=== PATIENT | female | born 1950 | race Caucasian/White ===

== ENCOUNTER → 2017-10-12 | Outpatient (CLI) | payer OTHER | END | disposition home or self-care (01) | LOC: C.PATHSPEC 14:57 | PROVIDERS: ATTEND Urology | DX: R30.0 Dysuria (principal) ==

== ENCOUNTER 2022-08-25 09:34 | Inpatient (IN) ==
--- NOTE | 2022-08-14 09:45 | PAT Medication Instructions ---
Medication Instructions Date of Service August 14, 2022 Home Medications Chloraphil Complex 1,500 mg PO TID Lactobacillus rhamnosus GG 10 billion cell capsule (Culturelle) 1 cap PO QPM Min-Gonzalez 300 mcg PO TID Vitamin D3 40 mcg PO QAM ascorbic acid (vitamin C) 300 mg chewable tablet 300 mg PO TID buspirone 7.5 mg tablet 7.5 mg PO QAM calcium lactate 300 mg PO TID clobetasol 0.05 % topical cream 1 applic topical Q3D cranberry 500 mg capsule 500 mg PO QAM fexofenadine 180 mg tablet 180 mg PO QAM omeprazole 40 mg capsule,delayed release 40 mg PO QAM simethicone 125 mg capsule (Gas-X Extra Strength) 125 mg PO BID PRN zinc 10 mg tablet 10 mg PO QAM STOP taking 2 weeks before surgery (or as soon as possible if surgery is within 2 weeks) Chloraphil Complex 1,500 mg PO TID Min-Gonzalez 300 mcg PO TID cranberry 500 mg capsule 500 mg PO QAM STOP taking 24 hours before surgery clobetasol 0.05 % topical cream 1 applic topical Q3D DO NOT take the morning of surgery Vitamin D3 40 mcg PO QAM ascorbic acid (vitamin C) 300 mg chewable tablet 300 mg PO TID calcium lactate 300 mg PO TID fexofenadine 180 mg tablet 180 mg PO QAM simethicone 125 mg capsule (Gas-X Extra Strength) 125 mg PO BID PRN zinc 10 mg tablet 10 mg PO QAM Take morning of surgery With a small sip of water, OTHERWISE NOTHING TO EAT OR DRINK AFTER MIDNIGHT: buspirone 7.5 mg tablet 7.5 mg PO QAM omeprazole 40 mg capsule,delayed release 40 mg PO QAM Take evening before surgery Lactobacillus rhamnosus GG 10 billion cell capsule (Culturelle) 1 cap PO QPM ascorbic acid (vitamin C) 300 mg chewable tablet 300 mg PO TID simethicone 125 mg capsule (Gas-X Extra Strength) 125 mg PO BID PRN(if needed) Other Notes If you have any questions please call us at [phone] or [phone] or [phone] or [phone]
--- NOTE | 2022-08-15 14:57 | Anesthesiology Consultation ---
Date of Service August 15, 2022 Assessment & Plan (1) Encounter for pre-operative examination: COVID screening: Per assessment on 08/15: No known COVID-19 positive contacts or current COVID-19 related symptoms. Travel screen negative. At surgeon discretion if preop Covid testing being done. Chart Review Chart Review: Acceptable Risk for Surgery and Patient seen in Pre Admission Testing Teaching & Discussion Pre-Anesthesia Teaching/Discussion Notes: Instructed NPO after midnight before surgery,except medications with 15 cc of water. Medication instructions provided according to the PAT guidelines. History Surgery Operation Date: 08/25/22 14:05 Proposed Procedures p Total Abdominal Hysterectomy, Bilateral Salpingo-oophorectomy - Douglas Israel MD Height/Weight Height: 5 ft 2 in Weight: 62.4 kg Allergies Allergy/AdvReac Type Severity Reaction Status Date / Time iodine Allergy Intermediate ITCHING Verified 08/14/22 10:22 Bactrim Allergy Unknown ITCHING Verified 12/13/17 10:14 nitrofurantoin Allergy Unknown ITCHING Verified 08/14/22 07:30 shellfish derived Allergy Unknown ITCHING Verified 08/14/22 07:30 sulfamethoxazole [Bactrim] Allergy Unknown ITCHING Verified 08/14/22 07:30 trimethoprim [Bactrim] Allergy Unknown ITCHING Verified 08/14/22 07:30 ciprofloxacin Allergy ITCHING Verified 08/14/22 10:22 Unclassified Drugs Allergy Unknown HAIR DYE - Uncoded 08/14/22 07:30 ITCHY Medications Home Medications Medication Instructions Recorded Confirmed Last Taken Chloraphil Complex 1,500 mg PO TID 08/14/22 08/14/22 Unknown Lactobacillus rhamnosus GG 10 1 cap PO QPM 08/14/22 08/14/22 Unknown billion cell capsule (Culturelle) Min-Gonzalez 300 mcg PO TID 08/14/22 08/14/22 Unknown Vitamin D3 40 mcg PO QAM 08/14/22 08/14/22 Unknown ascorbic acid (vitamin C) 300 mg 300 mg PO TID 08/14/22 08/14/22 Unknown chewable tablet buspirone 7.5 mg tablet 7.5 mg PO QAM 08/14/22 08/14/22 Unknown calcium lactate 300 mg PO TID 08/14/22 08/14/22 Unknown clobetasol 0.05 % topical cream 1 applic topical Q3D 08/14/22 08/14/22 Unknown cranberry 500 mg capsule 500 mg PO QAM 08/14/22 08/14/22 Unknown fexofenadine 180 mg tablet 180 mg PO QAM 08/14/22 08/14/22 Unknown omeprazole 40 mg capsule,delayed 40 mg PO QAM 08/14/22 08/14/22 Unknown release simethicone 125 mg capsule (Gas-X 125 mg PO BID PRN following meals 08/14/22 08/14/22 Unknown Extra Strength) zinc 10 mg tablet 10 mg PO QAM 08/14/22 08/14/22 Unknown Past Medical History Medical History (Updated 08/16/22 @ 08:37 by Tosha Redman) Anxiety Chronic anemia GERD (gastroesophageal reflux disease) History of COVID-19 05/2021- upset stomach, cough, congestion > resolved Thalassemia minor No recent/current issues Exercise / Class Metabolic Activity II 4-5 Yardwork/Stairs/Walk up hill Past Surgical History Surgical History History of bladder surgery cysto, bladder biopsy (12/13/17): MAC at [facility] History of dilatation and curettage History of esophagogastroduodenoscopy (EGD) Hx of arthroscopy of left knee Hx of colonoscopy Past Anesthesia History No Hx of Anesthesia Complications and No Family Hx of Anesthesia Complications History of PONV No Hx of PONV and Hx of Motion Sickness Social History Smoking Status: Former smoker tobacco type: cigarettes Do You Dip or Chew Tobacco: No Smoking End Date: Quit 35 years ago Hx Alcohol Use: Yes alcohol intake frequency: holidays/special occasions only Hx Substance Use: No substance use type: does not use Review of Systems Patient denies chest pain, shortness of breath, dyspnea on exertion, fever, chills, cough, wheezing, palpitations. Physical Exam Vital Signs VITALS BP 122/80 P 80 TEMP 98.3 SP02 97%RA RESP 16 PHYSICAL Full cervical extension range of motion. Full TMJ range of motion. TMD 3 finger breaths Mallampati Score 1 Dentition: upper partial Lungs: clear throughout to auscultation Cardiac: regular rate and rhythm, no murmurs noted Spine: normal Carotid arteries: negative bruit Extremities: no edema Lab Results Anesthesia Preop Results Results Anesthesia Widget: WBC 6.99 K/ul (4.8-10.8) 08/15/22 Hgb 10.1 g/dl (12.0-16.0) L 08/15/22 Hct 31.3 % (37.0-47.0) L 08/15/22 Plt 469 K/uL (130-400) H 08/15/22 Na 136 mmol/L (136-145) 08/15/22 K 4.1 mmol/L (3.5-5.1) 08/15/22 Cl 102 mmol/L (98-107) 08/15/22 CO2 27 mmol/L (21-32) 08/15/22 BUN 13 mg/dl (6-23) 08/15/22 Creat 0.98 mg/dl (0.6-1.2) 08/15/22 Glucose Level 92 mg/dl (70-99(Fasting)) 08/15/22 PT 11.3 Seconds (9.0-12.0) 08/15/22 PTT 28.4 Seconds (21.0-31.0) 08/15/22 INR 1.1 (0.9-1.1) 08/15/22 Blood Type A Positive 08/15/22 Antibody Screen NEGATIVE 08/15/22 Testing Electrocardiogram Date: 08/15/22 Findings: + NSR @ (77) COVID-19 Risk Screen Screening Information COVID-19 Screen Date: 08/15/22 Exposure 21 Days Family/Household +COVID Last 21 Days: No Exposure 10 Days Any COVID Exposure Last 10 Days: No Symptoms Last 10 Days Experienced COVID Sx Last 10 Days: No + COVID 0-90 Days COVID + in Last 0-90 Days: No
[~2022-08-25 09:34] MED LIST: BUPIVACAINE 0.25% PF 30 ML VIAL ONE; LR 15ML/HR IV SCH; cefOXitin 2,000 MG in DEXTROSE 5% 50 ML IV SCH
[2022-08-25] MEDS ORDERED: ONDANSETRON INJ 2 MG/ML 2 ML VIAL IV PRN ×2 (10:35→13:42)
[2022-08-25] MEDS ORDERED: ePHEDrine sulfate 50 MG/ML AMP IV PRN ×2 (10:35→13:41)
[2022-08-25] MEDS ORDERED: ATROPINE SULFATE 0.1 MG/ML 10ML SYR IV PRN (10:35)
[2022-08-25] MEDS ORDERED: LIDOCAINE 2% MPF LOCAL 5 ML VIAL ONE (11:01)
[2022-08-25] MEDS ORDERED: ROCURONIUM BROMIDE 10 MG/ML 5 ML VIAL IV ONE ×2 (11:01→14:12)
[2022-08-25] MEDS ORDERED: ONDANSETRON INJ 2 MG/ML 2 ML VIAL ONE (11:01)
[2022-08-25] MEDS ORDERED: DEXAMETHASONE SOD INJ 4 MG/ML VIAL ONE (11:01)
[2022-08-25] MEDS ORDERED: PROPOFOL IV EMULSION 10 MG/ML 20 ML VIAL IV ONE (11:01)
[2022-08-25] MEDS ORDERED: KETOROLAC 30 MG/ML VIAL ONE (11:03)
[2022-08-25] MEDS ORDERED: ACETAMINOPHEN 1000 MG/100 ML IV IV ONE (11:40)
[2022-08-25] MEDS ORDERED: FAMOTIDINE/PF 20 MG/2 ML VIAL IV ONE (11:40)
[2022-08-25] MEDS ORDERED: MIDAZOLAM HCL 1 MG/ML 2ML VIAL ONE (11:42)
[2022-08-25] MEDS ORDERED: fentaNYL citrate PF 100 MCG/2 ML VIAL ONE ×2 (11:42→13:56)
--- NOTE | 2022-08-25 11:50 | History & Physical Bridge Note ---
Date of Service August 25, 2022 History & Physical Bridge Note I have examined the patient, reviewed the History & Physical and in the interval since the performance of the History & Physical I have noted the following changes of clinical significance: no changes noted
[2022-08-25] MEDS ORDERED: MoRPHine SULFATE PF 1 MG/ML 10 ML AMP/VIAL ONE (12:04)
[2022-08-25] MEDS ORDERED: NALBUPHINE HCL INJ 10 MG/ML AMP IV PRN (13:41)
[2022-08-25] MEDS ORDERED: HYDROmorphone INJ 0.5 MG/0.5 ML SYR IV PRN (13:41)
[2022-08-25] MEDS ORDERED: NALOXONE HCL 0.08 MG in SYRINGE 1.8 ML IV PRN (13:41)
[2022-08-25] MEDS ORDERED: MoRPHine SULFATE 2 MG/ML CARP IV PRN (13:41)
[2022-08-25] MEDS ORDERED: LACTATED RINGER'S 500 ML IV PRN (13:41)
[2022-08-25] MEDS ORDERED: NALOXONE HCL 1 MG in SODIUM CHLORIDE 0.9% 1000ML 1,000 ML IV PRN (13:41)
[2022-08-25] MEDS ORDERED: diphenhydrAMINE 50 MG/ML VIAL IV PRN (13:41)
[2022-08-25] MEDS ORDERED: MoRPHine SULFATE PF 1 MG/ML 10 ML AMP/VIAL INT SPINAL ONE (13:41)
[2022-08-25] MEDS ORDERED: NALOXONE HCL 0.4 MG/1 ML VIAL/CARP IV PRN (13:41)
[2022-08-25] MEDS ORDERED: PROMETHAZINE HCL 6.25 MG in SODIUM CHLORIDE 0.9% 50 ML IV PRN (13:42)
[2022-08-25] MEDS ORDERED: SODIUM CHLORIDE 0.9% 1000ML 1,000 ML IV SCH (13:45)
[2022-08-25] MEDS ORDERED: NO NARCOTICS OR SEDATIVES SCH (13:45)
[2022-08-25] MEDS ORDERED: DC INTRASPINAL MORPHINE SCH (13:45)
[2022-08-25] MEDS ORDERED: NEOSTIGMINE METHYLSULFATE 1 MG/ML 10ML VIAL ONE (14:29)
[2022-08-25] MEDS ORDERED: GLYCOPYRROLATE 0.2 MG/ML VIAL ONE ×2 (14:29)
--- NOTE | 2022-08-25 14:38 | Post Operative Brief Note ---
Immediate Post Op Note v1 Date of Surgery August 25, 2022 Pre & Post Diagnosis Operation Date: 08/25/22 11:30 Pre-Op Diagnosis: Post Menopausal Bleeding, Fibroid Uterus Post-Op Diagnosis: Post Menopausal Bleeding, Fibroid Uterus I identified the patient and participated in the time-out.: Yes Procedure Operation Date: 08/25/22 11:30 Actual Procedures p Total Abdominal Hysterectomy, Bilateral Salpingo-oophorectomy(Not Applicable) - Douglas Israel MD Surgeon Douglas Israel MD Front Desk Admin nurse medical assistant secretary Estimated Blood Loss 100 Findings Consistent with Post-Op Diagnosis adhesions Drains [place] Drain Anesthesia Type General Regional Complications none
--- NOTE | 2022-08-25 15:08 | Anesthesiology Progress Note ---
Date of Service August 25, 2022 Anesthesia Post Procedure Vital Signs Vital Signs: Temp Pulse Pulse Resp BP Pulse Ox O2 Del Method 08/25/22 14:50 97.3 F L 61 14 145/72 H 100 Oxymask 08/25/22 09:56 98.6 F 92 H 16 169/83 H 98 Room Air O2 Flow Rate 08/25/22 14:50 7 08/25/22 09:56 Pain Intensity Lower Abdomen: Pain Intensity: 4 Transfer of Care Handoff Completed per policy Notes Mental Status: alert / awake / arousable and participated in evaluation Patient Amnestic to Procedure: Yes Nausea / Vomiting: adequately controlled Pain: adequately controlled Airway Patency, RR, SpO2: stable & adequate BP & HR: stable & adequate Hydration State: stable & adequate Anesthetic Complications: no major complications apparent and Pt Satisfied with anesthetic care
[2022-08-25] MEDS: fentaNYL citrate PF 100 MCG/2 ML VIAL IV PRN ×2 (15:16→15:22)
--- NOTE | 2022-08-25 15:48 | Operative Report (OR) ---
PROCEDURE PERFORMED: Total abdominal hysterectomy and bilateral salpingo- oophorectomy. INDICATIONS FOR SURGERY: Postmenopausal bleeding, fibroid uterus, failed D and C. PREOPERATIVE DIAGNOSES: Postmenopausal bleeding, failed D and C, fibroid uterus. SURGEON: Frank Israel MD. BUTTON MAKER: Nursing assist. ESTIMATED BLOOD LOSS: 100 mL ANESTHESIA: General with spinal narcotics. OPERATIVE FINDINGS AND PROCEDURE: The patient was brought to the OR table, correctly identified by armband and conversation. Spinal narcotics were administered. General anesthesia was administered. Perineum and vagina were painted with Betadine paint, draped in usual sterile fashion. Reyes catheter was inserted aseptically in the bladder, connected to gravity drainage. Lower abdomen was painted with an alcohol based sterilizing solution and draped in the usual sterile fashion. Pfannenstiel incision was made and carried down to the anterior fascia by sharp dissection. Hemostasis was secured by electrocauterization. Fascia was then incised laterally exposing the recti muscles. Fascia was dissected off the recti muscles, exposing the midline. Midline between the two rectus muscle was entered and the peritoneum was entered carefully. After entering the peritoneum, the incision was carried down to the pelvic brim and up towards the umbilicus, an O'Rodrigo[place] self-retraining retractor was inserted into the abdomen and four laparotomy packs were used to retract the intestines and provide adequate exposure of the pelvic cavity. The fundus was grasped with a double tooth tenaculum. The round ligaments were suture ligated and intact. They were then ligated distally with a silk tie. The round ligaments were clamped close to the uterus with a Melissa cut and then incision was made above the vesicouterine fold, the bladder was advanced out of the operative field. The adnexa removed by entering retroperitoneally on both the right and left side. Then, identifying the infundibulopelvic ligament, doubly ligated with a silk suture and then cutting the adnexa away from the lateral pelvic wall. The uterine vessels were skeletonized, clamped with a curved Anya, cut with a stump and then ligated with a transfixion suture twice. Following this, the stumps were cauterized. The bladder was advanced out of the operative field. Curved Anya was used to slide off the cervix, thus clamping the cardinal ligaments, cutting in with the stump and ligated them with a chromic gut suture. This was done in 4 steps on the left side because of adhesions and 3 steps on the right side. Then, the cervix was shelled out, thus excising surgical specimen consisting of uterus, cervix, both tubes and both ovaries. The angles of the vaginal cuff were suture ligated to the stumps of the cardinal ligaments on either side with a chromic gut suture. The anterior and posterior vaginal wall was approximated on each angle with a single interrupted chromic gut suture. The middle was whipstitched open with a continuous interlocking suture of chromic catgut. The Joel drain with a safety pin was brought out into the vagina and the other end into the cuff. The round ligaments were brought down and tied to the stumps of the cardinal ligaments for elevation of the vaginal cuff. We washed the pelvis clean. Hemostasis was excellent. We then removed the packs, removed the retractors. We did a careful anatomical approximation of the anterior abdominal wall. Peritoneum was closed with a continuous chromic gut suture. Recti muscles were approximated with [id number] suture chromic catgut. Fascia was closed with continuous interlocking suture of Vicryl on each side tied in the midline. Subcutaneous was approximated with a running plain and skin edges were approximated with staple clips. The patient tolerated the procedure well and left the OR in good condition. Job ID: [id number] [facility] CENTERAnnetta
[2022-08-25] MEDS ORDERED: oxyCODONE/ACETAMINOPHEN 5mg/325mg TAB PO PRN (17:24)
[2022-08-25] MEDS ORDERED: bisacodyL 10 MG SUPP PR PRN (17:24)
[2022-08-25] MEDS ORDERED: IBUPROFEN 600 MG TAB PO PRN (17:24)
[2022-08-25] MEDS ORDERED: MEPERIDINE HCL 50 MG/ML CARP IV PRN (17:24)
[2022-08-25] MEDS ORDERED: SENNA 8.6 MG TAB PO PRN (17:24)
[2022-08-25] MEDS ORDERED: MAGNESIUM HYDROXIDE SUSP 30 ML UDC PO PRN (17:24)
[2022-08-25] MEDS: PROMETHAZINE HCL 25 MG in SODIUM CHLORIDE 0.9% 50 ML IV PRN (17:56)
[2022-08-25] MEDS: D5W AND LACTATED RINGERS 1,000 ML IV SCH (21:20)
[2022-08-26] MEDS: D5W AND LACTATED RINGERS 1,000 ML IV SCH ×2 (05:00→09:32)
[2022-08-26 06:35] LABS: Basophils # (auto) 0.01 K/uL (0-0.2); Basophils % (auto) 0.1 %; Hematocrit (blood only) 25.3 % (37.0-47.0); Hemoglobin 8.3 g/dl (12.0-16.0); Immature Granulocytes # (auto) 0.06 K/uL (0.01-0.20); Immature Granulocytes % (auto) 0.6 %; Lymphocytes # (auto) 1.05 K/uL (1.2-3.4); Lymphocytes % (auto) 9.9 %; Mean Corpuscular Hemoglobin 21.6 pg (25.0-34.0); Mean Corpuscular Hgb Conc 32.8 g/dL (32.0-36.0); Mean Corpuscular Volume 65.7 fL (80.0-100.0); Monocytes # (auto) 1.11 K/uL (0.11-0.59); Monocytes % (auto) 10.5 %; Neutrophils # (auto) 8.35 K/uL (1.40-6.50); Neutrophils % (auto) 78.9 %; RDW Coefficient of Variation 16.4 % (11.5-14.5); RDW Standard Deviation 37.2 fL (36.4-46.3); Red Blood Count 3.85 M/uL (4.20-5.40); White Blood Count 10.58 K/ul (4.8-10.8)
[2022-08-26 07:01] LABS: Hypochromasia Present; Mean Platelet Volume 10.6 fL (9.4-12.4); Microcytosis Present; Ovalocytes 1+; Platelet Count 444 K/uL (130-400); Tear Drop Cells 1+
[2022-08-26 07:03] LABS: Calcium 8.9 mg/dl (8.6-10.3); Creatinine Clr Calc Pharmacy 41.7 ml/min; Est GFR (African American) 61.2 ml/min; Est GFR (Non-African American) 52.8 ml/min; Potassium 4.4 mmol/L (3.5-5.1)
[2022-08-26] MEDS: KETOROLAC 30 MG/ML VIAL IV PRN ×2 (07:38→13:11)
--- NOTE | 2022-08-26 09:22 | Obstetrical Progress Note ---
Date of Service August 26, 2022 Assessment & Plan Admission and Anticipated Discharge Date Admission Date: August 25, 2022 Subjective abdomen soft and non tender bowel sounds are normal bandage removed incision is clean and dry vaginal bleeding scant hgb 8.3 no calf tenderness Results & Data Vital Signs (Past 12 Hours) Vital Signs Temp Pulse Resp BP Pulse Ox O2 Del Method O2 Flow Rate 08/26/22 06:23 98 Room Air, Nasal Cannula 1 08/26/22 06:00 18 98 08/26/22 05:12 18 97 08/26/22 04:30 98 Nasal Cannula 2 08/26/22 04:04 16 97 08/26/22 03:00 16 98 08/26/22 02:36 36.7 C 62 18 99/57 L 99 Nasal Cannula 2 08/26/22 02:06 16 98 08/26/22 00:57 18 98 08/25/22 23:43 36.9 C 68 18 108/63 99 Nasal Cannula 2 08/25/22 23:00 16 99 08/25/22 22:00 16 99
[2022-08-26] MEDS: PANTOprazole 40 MG TAB PO SCH (09:32)
[2022-08-26] MEDS: ONDANSETRON INJ 2 MG/ML 2 ML VIAL IV PRN ×2 (15:12→20:20)
[2022-08-26] MEDS: ACETAMINOPHEN 500 MG TAB PO PRN (20:26)
[2022-08-27] MEDS: PROMETHAZINE HCL 25 MG in SODIUM CHLORIDE 0.9% 50 ML IV PRN (01:18)
[2022-08-27 06:46] LABS: Basophils # (auto) 0.04 K/uL (0-0.2); Basophils % (auto) 0.5 %; Eosinophils # (auto) 0.12 K/uL (0-0.50); Eosinophils % (auto) 1.4 %; Hematocrit (blood only) 22.5 % (37.0-47.0); Hemoglobin 7.3 g/dl (12.0-16.0); Immature Granulocytes # (auto) 0.05 K/uL (0.01-0.20); Immature Granulocytes % (auto) 0.6 %; Lymphocytes # (auto) 1.52 K/uL (1.2-3.4); Lymphocytes % (auto) 18.1 %; Mean Corpuscular Hemoglobin 21.7 pg (25.0-34.0); Mean Corpuscular Hgb Conc 32.4 g/dL (32.0-36.0); Mean Corpuscular Volume 66.8 fL (80.0-100.0); Monocytes # (auto) 0.74 K/uL (0.11-0.59); Monocytes % (auto) 8.8 %; Neutrophils # (auto) 5.94 K/uL (1.40-6.50); Neutrophils % (auto) 70.6 %; RDW Coefficient of Variation 16.2 % (11.5-14.5); RDW Standard Deviation 37.9 fL (36.4-46.3); Red Blood Count 3.37 M/uL (4.20-5.40); White Blood Count 8.41 K/ul (4.8-10.8)
[2022-08-27 06:51] LABS: Mean Platelet Volume 10.5 fL (9.4-12.4); Platelet Count 368 K/uL (130-400)
[2022-08-27 07:11] LABS: Microcytosis Present; Ovalocytes 1+; Polychromasia 1+; Tear Drop Cells 1+
[2022-08-27 07:15] LABS: BUN Creatinine Ratio 14.6 (10-20); Calcium 8.1 mg/dl (8.6-10.3); Creatinine Clr Calc Pharmacy 42.9 ml/min; Est GFR (African American) 63.3 ml/min; Est GFR (Non-African American) 54.6 ml/min; Potassium 4.2 mmol/L (3.5-5.1)
[2022-08-27] MEDS: PANTOprazole 40 MG TAB PO SCH (08:22)
--- NOTE | 2022-08-27 10:28 | Obstetrical Progress Note ---
Date of Service August 27, 2022 Assessment & Plan Admission and Anticipated Discharge Date Admission Date: August 25, 2022 Subjective abdomen soft and non tender incision is clean and dry no calf tenderness ambulating well eunice drain removed from vagina vaginal bleeding scant hgb 7.3 Results & Data Vital Signs (Past 12 Hours) Vital Signs Temp Pulse Pulse Resp BP Pulse Ox O2 Del Method 08/27/22 08:49 36.8 C 71 16 124/70 93 Room Air 08/26/22 22:53 37.4 C 69 18 130/64 95 Room Air
[2022-08-27] MEDS: ACETAMINOPHEN 500 MG TAB PO PRN ×2 (10:42→19:07)
[2022-08-27] MEDS: ONDANSETRON INJ 2 MG/ML 2 ML VIAL IV PRN ×2 (10:46→15:54)
[2022-08-27 16:03] LABS: Hematocrit (blood only) 24.8 % (37.0-47.0); Hemoglobin 8.1 g/dl (12.0-16.0)
[2022-08-28] MEDS: PANTOprazole 40 MG TAB PO SCH (06:39)
[2022-08-28] MEDS: ONDANSETRON INJ 2 MG/ML 2 ML VIAL IV PRN (07:21)
--- NOTE | 2022-08-28 08:32 | Obstetrical Progress Note ---
Date of Service August 28, 2022 Assessment & Plan Admission and Anticipated Discharge Date Admission Date: August 25, 2022 Subjective abdomen soft and non tender incision is clean and dry passing gas no calf tenderness ambulating well vaginal bleeding scant hgb 8.1 Results & Data Vital Signs (Past 12 Hours) Vital Signs Temp Pulse Resp BP Pulse Ox O2 Del Method 08/28/22 07:47 37.0 C 74 16 144/91 H 94 Room Air 08/28/22 05:00 37.1 C 82 18 124/85 93 Room Air 08/28/22 00:30 Room Air 08/27/22 22:50 37 C 72 18 127/87 94 Room Air
--- NOTE | 2022-08-28 09:00 | Discharge Summary (DS) ---
HOSPITAL COURSE: The patient was admitted for history of postmenopausal bleeding, fibroids and failed D and C. She guerrero d a history of postmenopausal bleeding, abnormal ultrasound showing fluid in the endometrial cavity a nd a fibroid. She was taken to the OR and at that time, they were unable to get into the endometrial cavity. We discussed the options with the patient and patient requested a total abdominal hysterect nevin in the event that there was endometrial pathology that could not be reached. She also has a hist ory of chronic thalassemia, so run on a low hemoglobin. The day of admission, she was taken to the OR where she underwent total abdominal hysterectomy, bilateral salpingo-oophorectomy with an estimated blood loss of 100 mL. Postoperatively, she did well, although on her second postoperative day, her he moglobin had fallen to 7.3. Later that afternoon, we repeated the hemoglobin and that had risen to 8 .1. She had a [place] drain in the vaginal cuff. This was removed on the second day, she remained a febrile. At the time of discharge, she was ambulating well, eating well and was given instructions t o call the office if she had a temperature over 100 or any heavy bleeding and to return in a week for removal of the carleen. Job ID: [id number]
[2022-08-28] MEDS: ACETAMINOPHEN 500 MG TAB PO PRN (09:28)
== END 2022-08-28 12:30 | disposition home or self-care (01) | DRG 743 ==
LOC: ASU 09:34 → 4E1 14:51